=== PATIENT | male | born 1970 | race Caucasian/White ===

== ENCOUNTER 2016-09-15 09:48 | Emergency (ER) | payer OTHER ==
[~2016-09-15] VITALS: Ht 177.8 cm; Wt 86.0 kg
[~2016-09-15 09:48] MED LIST: ATOR80TA76 PO; Aspirin PO; CLOP75TA2 PO; COR3 PO; DOCU-150 PO; FENO145T19 PO; Lisinopril PO; MAGN400T27 PO; NITR0.4T3 SL; PANT40TA4 PO; Ranolazine PO; SENEXON PO
[2016-09-15 10:15] VITALS: BP 124/90
[2016-09-15] MEDS ORDERED: LIDOCAINE HCL 1% 20ML VIAL (Pyxis) INJ MC ONE (10:30)
[2016-09-15] MEDS ORDERED: BACITRACIN ZINC OINT UDPKT TOP ONE (10:30)
== END 2016-09-15 11:40 | disposition home or self-care (01) ==
LOC: ER 09:49
DX: S61.211A Laceration without foreign body of left index finger without damage to nail, initial encounter (principal); S61.213A Laceration without foreign body of left middle finger without damage to nail, initial encounter; I25.10 Atherosclerotic heart disease of native coronary artery without angina pectoris; I25.2 Old myocardial infarction; F17.210 Nicotine dependence, cigarettes, uncomplicated; Z79.01 Long term (current) use of anticoagulants; Z95.5 Presence of coronary angioplasty implant and graft; W26.0XXA Contact with knife, initial encounter; Y93.89 Activity, other specified; Y92.018 Other place in single-family (private) house as the place of occurrence of the external cause
CPT/HCPCS: 12001; 99283; J3490; Z7610

== ENCOUNTER 2016-09-18 08:24 | Emergency (ER) | payer OTHER ==
[~2016-09-18] VITALS: Ht 177.8 cm; Wt 86.0 kg
[2016-09-18 08:32] VITALS: BP 109/80
== END 2016-09-18 09:41 | disposition home or self-care (01) ==
LOC: ER 08:52
DX: Z48.01 Encounter for change or removal of surgical wound dressing (principal); I25.2 Old myocardial infarction; Z95.820 Peripheral vascular angioplasty status with implants and grafts
CPT/HCPCS: 99283

== ENCOUNTER 2016-10-07 08:36 | Inpatient (IN) | payer OTHER ==
[~2016-10-07] VITALS: Ht 177.8 cm; Wt 81.6 kg
[2016-10-07] MEDS ORDERED: ONDANSETRON HCL 4MG/2ML VIAL IV STA (09:13)
[2016-10-07 09:51] LABS: BASOPHILS % 0.8 % (0.0-2.0); EOSINOPHILS % 2.2 % (0.0-5.0); HEMATOCRIT. 42.3 % (42.0-52.0); HEMOGLOBIN. 14.2 g/dL (14.0-18.0); LYMPHOCYTES % 28.2 % (20.0-50.0); MEAN CORPUSCULAR HEMOGLOBIN 29.9 pg (28.0-32.0); MEAN CORPUSCULAR HGB CONC 33.7 g/dL (31.0-37.0); MEAN CORPUSCULAR VOLUME 88.9 fL (80.0-94.0); MEAN PLATELET VOLUME 8.6 fl (7.4-10.4); NEUTROPHILS % 60.8 % (40.0-76.0); PLATELET 186 x1000/uL (130-400); RED BLOOD CELL COUNT 4.76 mill/uL (4.7-6.1); RED CELL DISTRIBUTION WIDTH 13.1 % (11.6-14.6); WHITE BLOOD COUNT 8.1 x1000/uL (4.5-11.0)
[2016-10-07 09:58] LABS: GLUCOSE URINE NEGATIVE (NEGATIVE); KETONES URINE NEGATIVE (NEGATIVE); LEUKOCYTE ESTERASE URINE NEGATIVE (NEGATIVE); NITRITE URINE NEGATIVE (NEGATIVE); OCCULT BLOOD URINE NEGATIVE (NEGATIVE); PROTEIN URINE NEGATIVE (NEGATIVE); UROBILINOGEN URINE 0.2 E.U./dL (0.2-1.0)
[2016-10-07 10:03] LABS: INR 1.1; PARTIAL THROMBOPLASTIN TIME 25.5 sec (24.0-34.0); PROTHROMBIN TIME 11.1 sec
[2016-10-07 10:05] LABS: CLARITY URINE CLEAR (CLEAR); COLOR URINE YELLOW (YELLOW)
[2016-10-07 10:08] LABS: ALANINE AMINOTRANSFERASE 53 IU/L (13-61); ALBUMIN 3.7 g/dL (3.4-5.0); ANION GAP 8; CALCIUM 8.6 mg/dL (8.5-10.1); CARBON DIOXIDE 30 mEq/L (21-32); CHLORIDE 109 mEq/L (98-107); INDEX HEMOLYSI 1 (1-3); INDEX ICTERIC 1 (1-4); INDEX LIPEMIC 1 (1-3); LIPASE 139 IU/L (73-393); NT PRO B-TYPE NATRIURETIC PEP 40 pg/mL (5-125); TROPONIN I 0.02 ng/mL (0.00-0.04); UREA NITROGEN BLOOD 15 mg/dL (7-21); eGFR > 60 mL/min (>60)
[2016-10-07] MEDS ORDERED: ACETAMINOPHEN 325MG TABLET PO PRN (11:00)
[2016-10-07] MEDS ORDERED: ONDANSETRON HCL 4MG/2ML VIAL IV PRN (11:00)
[2016-10-07] MEDS ORDERED: IPRATROPIUM/ALBUTEROL 0.5-3(2.5)MG/3ML NEB INH PRN (11:00)
[2016-10-07] MEDS ORDERED: DIPHENHYDRAMINE 50MG/ML VIAL IV PRN (11:00)
[2016-10-07] MEDS ORDERED: CLONIDINE 0.1MG TABLET PO PRN (11:00)
[2016-10-07] MEDS ORDERED: HYDROCODONE/ACETAMINOPHEN 5/325MG TABLET PO PRN (11:00)
[2016-10-07 14:59] LABS: *AMPHETAMINES SCREEN URINE NEGATIVE (NEGATIVE); *BARBITURATES SCREEN URINE NEGATIVE (NEGATIVE); *BENZODIAZEPINES SCREEN URINE NEGATIVE (NEGATIVE); *COCAINE SCREEN URINE NEGATIVE (NEGATIVE); CANNABINOID URINE SCREEN NEGATIVE (NEGATIVE); ECSTASY MDMA SCREEN URINE NEGATIVE (NEGATIVE); METHADONE URINE SCREEN NEGATIVE (NEGATIVE); OPIATES URINE SCREEN NEGATIVE (NEGATIVE); PHENCYCLIDINE URINE SCREEN NEGATIVE (NEGATIVE)
[2016-10-07] MEDS ORDERED: ENOXAPARIN 60MG/0.6ML SYR SUBCUT NR (16:45)
[2016-10-07 20:00] VITALS: BP 110/73
[2016-10-07] MEDS: NITROGLYCERIN OINT 1GM/INCH UDPKT TD SCH ×2 (20:00→23:55)
[2016-10-07] MEDS ORDERED: ASPIRIN 325MG EC TABLET PO SCH (20:00)
[2016-10-07 20:36] VITALS: BP 110/73
[2016-10-07] MEDS: CARVEDILOL 3.125 MG TABLET PO SCH (21:00)
[2016-10-07] MEDS ORDERED: ATORVASTATIN CALCIUM 40MG TABLET PO SCH (21:00)
[2016-10-07 21:21] VITALS: BP 119/70
[2016-10-07] MEDS ORDERED: ASPIRIN 81MG TABLET PO SCH (21:37)
[2016-10-07] MEDS: CLOPIDOGREL 75MG TABLET PO SCH (21:40)
[2016-10-07] MEDS: RANOLAZINE 500 MG TAB.SR.12H PO SCH (21:40)
[2016-10-07] MEDS: LISINOPRIL 5MG TABLET PO SCH (21:41)
[2016-10-07] MEDS: ASPIRIN 81MG TABLET PO SCH (21:46)
[2016-10-07 23:37] VITALS: BP 124/69
[2016-10-08 04:35] VITALS: BP 104/69
[2016-10-08] MEDS: NITROGLYCERIN OINT 1GM/INCH UDPKT TD SCH ×2 (05:06→12:00)
[2016-10-08 06:26] LABS: BASOPHILS % 0.6 % (0.0-2.0); EOSINOPHILS % 2.8 % (0.0-5.0); HEMATOCRIT. 41.7 % (42.0-52.0); HEMOGLOBIN. 14.1 g/dL (14.0-18.0); LYMPHOCYTES % 30.8 % (20.0-50.0); MEAN CORPUSCULAR HEMOGLOBIN 29.9 pg (28.0-32.0); MEAN CORPUSCULAR HGB CONC 33.8 g/dL (31.0-37.0); MEAN CORPUSCULAR VOLUME 88.5 fL (80.0-94.0); MONOCYTES % 6.7 % (2.0-8.0); NEUTROPHILS % 59.1 % (40.0-76.0); PLATELET 176 x1000/uL (130-400); RED BLOOD CELL COUNT 4.71 mill/uL (4.7-6.1); RED CELL DISTRIBUTION WIDTH 12.9 % (11.6-14.6); WHITE BLOOD COUNT 8.5 x1000/uL (4.5-11.0)
[2016-10-08 07:13] LABS: ALBUMIN 3.6 g/dL (3.4-5.0); ANION GAP 12; CALCIUM 8.5 mg/dL (8.5-10.1); CARBON DIOXIDE 25 mEq/L (21-32); CHLORIDE 111 mEq/L (98-107); INDEX HEMOLYSI 1 (1-3); INDEX ICTERIC 1 (1-4); INDEX LIPEMIC 1 (1-3); UREA NITROGEN BLOOD 16 mg/dL (7-21)
[2016-10-08 07:23] LABS: ALANINE AMINOTRANSFERASE 47 IU/L (13-61); HDL CHOLESTEROL 35 mg/dL (40-59); LDL CHOLESTEROL 58 mg/dL (5-100); TRIGLYCERIDE 217 mg/dL (0-150); TROPONIN I < 0.02 ng/mL (0.00-0.04); eGFR > 60 mL/min (>60)
[2016-10-08] MEDS: ASPIRIN 81MG TABLET PO SCH (08:08)
[2016-10-08] MEDS: RANOLAZINE 500 MG TAB.SR.12H PO SCH (08:09)
[2016-10-08] MEDS: CLOPIDOGREL 75MG TABLET PO SCH (08:10)
[2016-10-08 08:11] VITALS: BP 97/67
[2016-10-08] MEDS: CARVEDILOL 3.125 MG TABLET PO SCH (08:12)
[2016-10-08] MEDS: LISINOPRIL 5MG TABLET PO SCH (08:13)
[2016-10-08] MEDS ORDERED: REGADENOSON 0.4 MG/5 ML IV NR (12:15)
[2016-10-08 12:25] VITALS: BP 100/68
[2016-10-08] MEDS ORDERED: REGADENOSON 0.4 MG/5 ML IV ONE (13:23)
[2016-10-08 14:56] VITALS: BP 100/68
[2016-10-08 16:16] VITALS: BP 110/74
== END 2016-10-08 19:43 | disposition home or self-care (01) | DRG 303 ==
LOC: ER 08:49 → 8WST 10:40
PROVIDERS: ADMIT Internal Medicine; ATTEND Internal Medicine
DX: I25.110 Atherosclerotic heart disease of native coronary artery with unstable angina pectoris (principal); I24.9 Acute ischemic heart disease, unspecified; E11.65 Type 2 diabetes mellitus with hyperglycemia; E78.00 Pure hypercholesterolemia, unspecified; I11.9 Hypertensive heart disease without heart failure; I25.2 Old myocardial infarction; Z87.891 Personal history of nicotine dependence; Z79.02 Long term (current) use of antithrombotics/antiplatelets; Z79.82 Long term (current) use of aspirin; Z82.49 Family history of ischemic heart disease and other diseases of the circulatory system; Z95.5 Presence of coronary angioplasty implant and graft; Z79.899 Other long term (current) drug therapy
CPT/HCPCS: 36415; 71010; 78452; 80053; 80061; 80305; 81003; 83036; 83690; 83735; 83880; 84443; 84484; 85025; 85379; 85610; 85730; 87040; 87086; 93005; 93017; 93306; 96374; 99285; A9500; J1650; J2405; J2785

== ENCOUNTER 2017-10-20 10:37 | Emergency (ER) | payer OTHER ==
[~2017-10-20] VITALS: Ht 172.7 cm; Wt 75.0 kg
[~2017-10-20 10:37] MED LIST changes: +ATOR-2 PO; -ATOR80TA76 PO; +CLOP75TA15 PO; -CLOP75TA2 PO; -FENO145T19 PO; +FENO145T36 PO; -NITR0.4T3 SL; +NITR0.4T49 SL
[2017-10-20] MEDS ORDERED: ASPIRIN 81MG TABLET PO STA (11:48)
[2017-10-20 12:25] LABS: EOSINOPHILS % 2.2 % (0.0-5.0); HEMATOCRIT. 46.1 % (42.0-52.0); HEMOGLOBIN. 15.7 g/dL (14.0-18.0); LYMPHOCYTES % 30.1 % (20.0-50.0); MEAN CORPUSCULAR HEMOGLOBIN 29.6 pg (28.0-32.0); MEAN CORPUSCULAR VOLUME 86.6 fL (80.0-94.0); MEAN PLATELET VOLUME 8.6 fl (7.4-10.4); MONOCYTES % 6.2 % (2.0-8.0); NEUTROPHILS % 60.5 % (40.0-76.0); PLATELET 171 x1000/uL (130-400); RED BLOOD CELL COUNT 5.32 mill/uL (4.7-6.1); RED CELL DISTRIBUTION WIDTH 13.2 % (11.6-14.6)
[2017-10-20 12:31] LABS: CHLORIDE 110 mEq/L (98-107)
[2017-10-20 12:41] VITALS: BP 157/93
[2017-10-20 12:43] LABS: INR 1.1
== END 2017-10-20 13:22 | disposition left against medical advice (07) ==
LOC: ER 11:38 → CANBEDREQ 17:42
DX: R07.89 Other chest pain (principal); I10 Essential (primary) hypertension; R00.1 Bradycardia, unspecified; R73.03 Prediabetes; I25.10 Atherosclerotic heart disease of native coronary artery without angina pectoris; E78.00 Pure hypercholesterolemia, unspecified; I25.2 Old myocardial infarction; Z95.5 Presence of coronary angioplasty implant and graft; Z79.82 Long term (current) use of aspirin; Z79.899 Other long term (current) drug therapy
CPT/HCPCS: 36415; 71045; 80053; 84484; 85025; 85610; 85730; 93005; 99285; Z7610

== ENCOUNTER 2021-10-04 17:41 | Emergency (ER) | payer MEDICAID, OTHER ==
[~2021-10-04] VITALS: Ht 177.8 cm; Wt 80.0 kg
[~2021-10-04 17:41] MED LIST changes: +FENO145T25 PO; -FENO145T36 PO; -MAGN400T27 PO; +MAGN400T8 PO; -PANT40TA4 PO; +PANT40TA51 PO
[2021-10-04 18:42] LABS: BASOPHILS % 0.5 % (0.0-2.0); HEMATOCRIT. 44.8 % (42.0-52.0); HEMOGLOBIN. 15.1 g/dL (14.0-18.0); LYMPHOCYTES % 27.5 % (20.0-50.0); MEAN CORPUSCULAR HEMOGLOBIN 29.1 pg (28.0-32.0); MEAN CORPUSCULAR VOLUME 86.5 fL (80.0-94.0); MEAN PLATELET VOLUME 8.2 fl (7.4-10.4); MONOCYTES % 6.3 % (2.0-8.0); NEUTROPHILS % 63.7 % (40.0-76.0); PLATELET 197 x1000/uL (130-400); RED BLOOD CELL COUNT 5.18 mill/uL (4.7-6.1); RED CELL DISTRIBUTION WIDTH 13.9 % (11.6-14.6)
[2021-10-04 18:55] LABS: CHLORIDE 109 mEq/L (98-107)
[2021-10-04] MEDS ORDERED: ASPIRIN 81MG TABLET PO NR (19:15)
[2021-10-04 21:30] VITALS: BP 137/80
== END 2021-10-04 23:13 ==
LOC: ER 17:41 → CANBEDREQ 10-05 01:14
DX: R07.89 Other chest pain (principal); I25.10 Atherosclerotic heart disease of native coronary artery without angina pectoris; E78.00 Pure hypercholesterolemia, unspecified; I10 Essential (primary) hypertension; I25.2 Old myocardial infarction; Z79.899 Other long term (current) drug therapy
CPT/HCPCS: 36415; 71045; 80053; 83880; 84484; 85025; 85379; 99284